=== PATIENT | female | born 1970 | race Two or more races ===

== ENCOUNTER 2024-08-04 10:47 | Emergency (ER) | payer BC ==
[~2024-08-04] VITALS: Ht 157.5 cm; Wt 82.7 kg
[2024-08-04 12:05] LABS: BILIRUBIN, URINE NEGATIVE (negative); BLOOD/HGB, URINE NEGATIVE (Negative); KETONE, URINE NEGATIVE (Negative); LEUK ESTERASE, URINE NEGATIVE (negative); NITRITE, URINE NEGATIVE (negative)
[2024-08-04] MEDS ORDERED: OMEPRAZOLE20 MG PO (12:15)
[2024-08-04 12:45] LABS: BASOPHILS 0.3 % (0-2); EOSINOPHILS 1.5 % (0-6); HEMATOCRIT 40.7 % (35.0-50.0); HEMOGLOBIN 14.1 g/dL (12.0-18.0); LYMPHOCYTES 41.6 % (24-44); MCH 32.7 (27-36); MCHC 34.7 g/dl (30-36); MCV 94.2 fl (81-99); MONOCYTES 5.9 % (0-12); NEUTROPHILS 50.7 % (39-80); PLATELET COUNT 220 K/uL (140-440); RBC 4.32 M/ul (4.3-5.7); RDW 12.9 (10.5-15.0)
[2024-08-04 13:00] LABS: ALBUMIN 3.5 g/dL (3.4-5.0); ALBUMIN/GLOBULIN RATIO 0.83 (1.1-2.4); ANION GAP 11.6 (7-21); BILIRUBIN, TOTAL 0.5 ng/dL (0.2-1.0); BUN/CREATININE RATIO 16.66 (6.0-28.6); CALCIUM 9.2 mg/dL (8.5-10.1); CREATININE, SERUM 0.66 mg/dL (0.55-1.02); POTASSIUM 3.6 mmol/L (3.5-5.1); PROTEIN, TOTAL 7.7 g/dL (6.4-8.2)
[2024-08-04] MEDS ORDERED: ONDANSETRON ODT8 MG PO (15:09)
[2024-08-04] MEDS ORDERED: PANTOPRAZOLE SODIUM 40 MG TABEC PO ONE (15:15)
[2024-08-04 15:27] VITALS: BP 128/70
== END 2024-08-04 15:25 | disposition home or self-care (01) ==
LOC: ED 10:47
PROVIDERS: Emergency Medicine
DX: R10.11 Right upper quadrant pain (principal); K76.0 Fatty (change of) liver, not elsewhere classified
CPT/HCPCS: 36415; 76705; 80053; 81003; 83690; 84703; 85025; 99284-25; A9270